=== PATIENT | male | born 1975 | race American Indian/Alaskan Native ===

== ENCOUNTER 2016-10-12 22:50 | Emergency (ER) | payer OTHER | END 2016-10-12 23:20 | disposition left against medical advice (07) | LOC: C.ER 22:50 | DX: Z04.8 Encounter for examination and observation for other specified reasons (principal); Z02.9 Encounter for administrative examinations, unspecified ==

== ENCOUNTER 2016-10-31 03:17 | Emergency (ER) | payer MEDICAID ==
[2016-10-31 03:26] VITALS: O2SAT 98
--- NOTE | 2016-10-31 03:44 | C.PDOC ---
History Of Present Illness <Alessandra Briones - Last Filed: 10/31/16 05:55> <Bruno Mack - Last Filed: 10/31/16 05:56> Patient is a 41 year old male who presents to the ER with a complaint of right chest wall pain that worsens with movement. Patient states he slipped and fell on his right side. Denies LOC, abdominal pain or other injury. (Bruno Mack R) <Alessandra Briones - Last Filed: 10/31/16 05:55> - HPI History Per: Patient History/Exam Limitations: no limitations Onset/Duration Of Symptoms: Hrs Injury Occurred (Timing): Just Before Arrival Location Of Injury: Right: Chest Recent travel outside of the [place]: No - Fall Fall:Prior To Injury: Slipped <Bruno Mack - Last Filed: 10/31/16 05:56> - HPI Chief Complaint (Nursing): Trauma Past Medical History Reviewed: Historical Data, Nursing Documentation, Vital Signs - Medical History PMH: No Chronic Diseases Surgical History: No Surg Hx Family History: States: Unknown Family Hx - Social History Hx Tobacco Use: No Hx Alcohol Use: No Hx Substance Use: No - Immunization History Hx Tetanus Toxoid Vaccination: Yes Hx Influenza Vaccination: (2014) Hx Pneumococcal Vaccination: No <Bruno Mack - Last Filed: 10/31/16 05:56> Vital Signs: Last Vital Signs Temp 97.8 F 10/31/16 03:23 Pulse 111 H 10/31/16 03:23 Resp 20 10/31/16 03:23 BP 138/94 H 10/31/16 03:23 Pulse Ox 98 10/31/16 05:54 Review Of Systems Cardiovascular: Positive for: Chest Pain (Right wall) Gastrointestinal: Negative for: Abdominal Pain Neurological: Negative for: Other (LOC) <Bruno Mack - Last Filed: 10/31/16 05:56> Physical Exam - Physical Exam Appears: Non-toxic, Other (Mild distress) Skin: Normal Color, Warm, Dry Head: Atraumatic, Normacephalic Oral Mucosa: Moist Chest: Symmetrical, Tenderness (Right lateral area) Cardiovascular: Rhythm Regular, No Murmur Respiratory: Normal Breath Sounds, No Rales, No Rhonchi, No Wheezing Gastrointestinal/Abdominal: Soft, No Tenderness Neurological/Psych: Oriented x3, Normal Speech, Normal Cognition <Bruno Mack - Last Filed: 10/31/16 05:56> ED Course And Treatment O2 Sat by Pulse Oximetry: 98 (Room air) Pulse Ox Interpretation: Normal - Radiology CXR: Interpreted by Me, Viewed By Me CXR Interpretation: Yes: No Acute Disease Progress Note: CXR ordered. Toradol administered. <Bruno Mack - Last Filed: 10/31/16 05:56> Disposition Counseled Patient/Family Regarding: Studies Performed, Diagnosis, Need For Followup, Rx Given - Disposition Disposition Time: 05:55 <Alessandra Briones - Last Filed: 10/31/16 05:55> <Bruno Mack - Last Filed: 10/31/16 05:56> - Disposition Disposition: HOME/ ROUTINE Condition: STABLE Additional Instructions: Take meds prescribed Follow up in clinic Return to ER if worse Prescriptions: Ibuprofen [Motrin] 600 mg PO Q6H #20 tab Instructions: Rib Contusion (ED) - Clinical Impression Clinical Impression: Contusion of rib on right side Critical Care Time <Alessandra Briones - Last Filed: 10/31/16 05:55> - Scribe Statement The provider has reviewed the documentation as recorded by the Scribe <Bruno Mack - Last Filed: 10/31/16 05:56> - Scribe Statement Maycol Morejon+ All medical record entries made by the Scribe were at my direction and personally dictated by me. I have reviewed the chart and agree that the record accurately reflects my personal performance of the history, physical exam, medical decision making, and the department course for this patient. I have also personally directed, reviewed, and agree with the discharge instructions and disposition. (Bruno Mack)
[2016-10-31 06:13] VITALS: BP 128/75; PULSE 80; RESP 16; TEMP 97.5
--- NOTE | 2016-10-31 11:29 | RAD ---
PROCEDURE: Radiographs of the Chest and Right Ribs. HISTORY: injury / pain COMPARISON: None available. TECHNIQUE: Frontal radiograph of the chest and multiple oblique radiographs of the right ribs were obtained. FINDINGS: RIGHT RIBS: Subacute appearing fractures inferior lateral 10th 9th and 8th ribs suggested LUNGS: Clear. PLEURA: No pneumothorax or pleural fluid. CARDIOVASCULAR: Normal sized heart. No pulmonary vascular congestion. OTHER FINDINGS: None. IMPRESSION: Subacute appearing inferior right rib fractures as above -an nondisplaced. Minimal callus formation suggested. No pneumothorax. No pleural effusion
== END 2016-10-31 06:28 | disposition home or self-care (01) ==
LOC: C.ER 03:17
DX: S20.211A Contusion of right front wall of thorax, initial encounter (principal); W01.0XXA Fall on same level from slipping, tripping and stumbling without subsequent striking against object, initial encounter; Y93.9 Activity, unspecified; Y92.9 Unspecified place or not applicable
CPT/HCPCS: 71101; 96372; 99284; J1885

== ENCOUNTER 2016-11-01 07:15 | Emergency (ER) | payer MEDICAID ==
[2016-11-01 07:26] VITALS: BP 125/85; PULSE 87; RESP 18; TEMP 97.7; O2SAT 97; BMI 24.4
--- NOTE | 2016-11-01 08:36 | C.PDOC ---
History Of Present Illness 41-year-old male, presents to the emergency department with complaints of a cough and sore throat that started last night. Denies nausea/vomiting, headache , dizziness, or any other associated symptoms. No other complaints at this time. Time Seen by Provider: 11/01/16 07:36 Chief Complaint (Nursing): ENT Problem History Per: Patient History/Exam Limitations: None Onset/Duration Of Symptoms: Hrs Current Symptoms Are (Timing): Still Present Past Medical History Reviewed: Historical Data, Nursing Documentation, Vital Signs Vital Signs: Last Vital Signs Temp 97.7 F 11/01/16 07:25 Pulse 87 11/01/16 07:25 Resp 18 11/01/16 07:25 BP 125/85 11/01/16 07:25 Pulse Ox 97 11/01/16 09:02 - Medical History PMH: Denies: Diabetes, Hepatitis, HIV, HTN, Seizures, Sexually Transmitted Disease Family History: States: No Known Family Hx - Social History Hx Tobacco Use: No Hx Alcohol Use: No Hx Substance Use: No - Immunization History Hx Tetanus Toxoid Vaccination: Yes Hx Influenza Vaccination: (2014) Hx Pneumococcal Vaccination: No Review Of Systems Except As Marked, All Systems Reviewed And Found Negative. Constitutional: Negative for: Fever, Chills ENT: Positive for: Throat Pain Respiratory: Positive for: Cough. Negative for: Shortness of Breath, Sputum Gastrointestinal: Negative for: Nausea, Vomiting Musculoskeletal: Negative for: Back Pain Skin: Negative for: Rash Neurological: Negative for: Headache Physical Exam - Physical Exam Appears: Non-toxic, No Acute Distress Skin: Normal Color, Warm, Dry Head: Atraumatic, Normacephalic Eye(s): bilateral: Normal Inspection, PERRL, EOMI Nose: Normal Oral Mucosa: Moist Lips: Normal Appearing Neck: Normal ROM Cardiovascular: Rhythm Regular, No Murmur Respiratory: Normal Breath Sounds Extremity: Normal ROM Neurological/Psych: Oriented x3, Normal Speech ED Course And Treatment O2 Sat by Pulse Oximetry: 97 - Radiology CXR: Interpreted by Me CXR Interpretation: Yes: No Acute Disease Progress Note: Patient evaluated in ED yesterday for same complaint. Plan: CXR , RSV and throat culture ordered. CXR reviewed. No acute findings. Patient will be discharged for outpatient f/u with clinic. On re-evaluation lungs clear Reassessment Condition: Improved Disposition - Disposition Referrals: [facility] [Outside] [facility] [Outside] Disposition: HOME/ ROUTINE Disposition Time: 09:40 Condition: GOOD Additional Instructions: Follow up with clinic for further evaluation Instructions: Acute Cough (ED) - POA Present On Arrival: None - Clinical Impression Clinical Impression: Cough, URI (upper respiratory infection) - Scribe Statement The provider has reviewed the documentation as recorded by the Elioibtoby Manrique All medical record entries made by the Elioibtoby were at my direction and personally dictated by me. I have reviewed the chart and agree that the record accurately reflects my personal performance of the history, physical exam, medical decision making, and the department course for this patient. I have also personally directed, reviewed, and agree with the discharge instructions and disposition.
--- NOTE | 2016-11-01 10:17 | RAD ---
HISTORY: Shortness of breath COMPARISON: 10/31/2016. TECHNIQUE: Chest PA and lateral FINDINGS: LUNGS: The lungs are well inflated and clear. PLEURA: No significant pleural effusion identified. No pneumothorax apparent. CARDIOVASCULAR: Normal. OSSEOUS STRUCTURES: No significant abnormalities. VISUALIZED UPPER ABDOMEN: Normal. OTHER FINDINGS: None. IMPRESSION: No active pulmonary disease.
== END 2016-11-01 09:08 | disposition home or self-care (01) ==
LOC: C.ER 07:15
DX: J06.9 Acute upper respiratory infection, unspecified (principal); R05 Cough; Z72.0 Tobacco use

== ENCOUNTER 2017-01-20 13:00 | Emergency (ER) | payer OTHER ==
[2017-01-20 13:00] VITALS: BMI 24.4
[2017-01-20 13:07] VITALS: RESP 18
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
[2017-01-20 14:37] VITALS: PULSE 89
[2017-01-20 16:10] VITALS: BP 135/78; TEMP 98.6
[2017-01-20 21:30] VITALS: O2SAT 97
== END 2017-01-20 16:50 | disposition short-term general hospital (02) ==
LOC: C.ER 13:00
DX: S02.642A Fracture of ramus of left mandible, initial encounter for closed fracture (principal); Y04.0XXA Assault by unarmed brawl or fight, initial encounter; Y92.9 Unspecified place or not applicable

== ENCOUNTER 2018-03-22 11:11 | Emergency (ER) | payer MEDICAID, OTHER ==
[2018-03-22 11:27] VITALS: BMI 21.1
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
[2018-03-22] MEDS ORDERED: Oxycodone/Acetaminophen 5/325 mg Tab ONE (12:26)
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
[2018-03-22] MEDS ORDERED: Oxycodone/Acetaminophen 5/325 mg Tab PO STA (12:33)
[2018-03-22] MEDS ORDERED: Bacitracin 500 Units/gm Oint Foilpak UD ONE (13:42)
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
--- NOTE | 2018-03-22 13:51 | CT ---
Date of service: 03/22/2018 CT chest without IV contrast Indication: injury Technique: Contiguous axial images were obtained through the chest without intravenous contrast enhancement. Sagittal and coronal reconstructions were generated and reviewed. This CT exam was performed using 1 or more of the following dose reduction techniques: Automated exposure control, adjustment of the MAA and/or kV according to patient size, and/or use of iterative reconstruction technique. Radiation dose (DLP): 216.85 MGy-cm. Comparison: Chest x-ray performed the same day. Findings: Visualized portions of the inferior thyroid gland appear unremarkable. The unenhanced mediastinal and hilar vascular structures appear grossly unremarkable. The heart appears within normal limits of size. No atherosclerotic calcifications of the aorta. Small right upper lobe bulla. No focal consolidation. No pleural effusion. No pneumothorax. No suspicious pulmonary nodules measuring greater than 5 mm. Limited visualization of the noncontrast upper abdomen appears grossly unremarkable. Nondisplaced right 8th through 10th lateral rib fracture deformities appear acute. Impression: Nondisplaced right 8th through 10th lateral rib fracture deformities appear acute.
[2018-03-22 15:49] VITALS: BP 121/70; PULSE 79; RESP 16; TEMP 98.2
[2018-03-22 15:51] VITALS: O2SAT 97
== END 2018-03-22 16:32 | disposition home or self-care (01) ==
LOC: C.ER 11:11
DX: S22.41XA Multiple fractures of ribs, right side, initial encounter for closed fracture (principal); S62.306G Unspecified fracture of fifth metacarpal bone, right hand, subsequent encounter for fracture with delayed healing; Y04.0XXA Assault by unarmed brawl or fight, initial encounter

== ENCOUNTER 2018-07-09 15:17 | Emergency (ER) | payer MEDICAID, OTHER ==
[2018-07-09 15:17] VITALS: BMI 24.4
[2018-07-09] MEDS ORDERED: Lidocaine 5% Patch TD STA (15:39)
[2018-07-09] MEDS ORDERED: Sodium Chloride 0.9% 1,000 ML IV ONE (15:48)
[2018-07-09] MEDS ORDERED: Lidocaine 5% Patch TD ONE (15:52)
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
[2018-07-09 16:05] LABS: BASO % 0.6 % (0.0-2.0); EOS # 0.1 K/uL (0.0-0.7); HEMOGLOBIN 12.9 g/dL (12.0-18.0); LYMPH # 1.4 K/uL (1.0-4.3); MEAN CELL VOLUME 98.7 fL (80.0-94.0); MEAN CORPUSCULAR HEMOGLOBIN 33.2 pg (27.0-31.0); MEAN CORPUSCULAR HGB CONC 33.6 g/dL (33.0-37.0); MEAN PLATELET VOLUME 6.9 fL (7.2-11.7); MONO # 0.3 K/uL (0.0-0.8); MONO % 6.7 % (0.0-10.0); NEUT # 3.3 K/uL (1.8-7.0); NEUT % 63.7 % (50.0-75.0); NRBC % 0.1 % (0.0-2.0); RBC 3.88 Mil/uL (4.40-5.90); RED CELL DISTRIBUTION WIDTH 12.7 % (11.5-14.5); WHITE BLOOD COUNT 5.1 K/uL (4.8-10.8)
[2018-07-09 16:16] LABS: ALB/GLOB RATIO 1.7 (1.0-2.1); ALBUMIN 4.6 g/dL (3.5-5.0); ALT/SGPT 28 U/L (21-72); AST/SGOT 54 U/L (17-59); BLOOD UREA NITROGEN 13 mg/dL (9-20); CALCIUM 8.2 mg/dl (8.6-10.4); GFR NON-AFRICAN AMERICAN > 60
[2018-07-09 16:17] LABS: VENOUS BLOOD GAS BASE EXCESS 0.3 mmol/L (0.0-2.0); VENOUS BLOOD GAS PCO2 45 mmHg (40-60); VENOUS BLOOD GAS PO2 33 mm/Hg (30-55); VENOUS BLOOD PH 7.37 (7.32-7.43)
[2018-07-09] MEDS ORDERED: Sodium Chloride 0.9% 1,000 ML ONE (16:17)
[2018-07-09 16:39] VITALS: RESP 20
[2018-07-09] MEDS ORDERED: Iohexol 350mg/ml 100 ML ONE (17:08)
[2018-07-09] MEDS ORDERED: Iodixanol 320 MG/ML 100 ML BOTTLE IV ONE (17:16)
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
[2018-07-09 18:06] VITALS: O2SAT 99
[2018-07-09 18:08] VITALS: BP 144/84; PULSE 87; TEMP 99.1
== END 2018-07-09 18:16 | disposition home or self-care (01) ==
LOC: C.ER 15:17
DX: S20.212A Contusion of left front wall of thorax, initial encounter (principal); Y04.0XXA Assault by unarmed brawl or fight, initial encounter; Z72.0 Tobacco use
CPT/HCPCS: 71101; 71260; 74177; 80053; 82803; 82948; 85025; 96361; 96374; 99285; J1885; J7030; Q9967